=== PATIENT | male | born 1960 | race Caucasian/White ===

== ENCOUNTER 2021-01-21 13:34 | Inpatient (IN) | payer OTHER ==
[~2021-01-21] VITALS: Ht 180.3 cm; Wt 130.0 kg
[2021-01-21] MEDS ORDERED: ADULT ASPIRIN R81 MG PO (14:27)
--- NOTE | 2021-01-21 20:09 | NUR ---
PT ARRIVE TO [facility] FLOOR AT 1940 VIA STRETCHER. HE WAS ABLE TO MOVE OVER TO BED SBA. RR IS EVEN AND NONLABORED. NG TUBE IS INPLACE AND PLACE ON LIWS BY PRIMARY RN JUAN. COMPLETED ADMISSION HX WITH PT. HE DENIES NEEDS AT THIS TIME. ORIENTED PT TO CALL LIGHT. PT UP TO USE RESTROOM AND BACK IN BED. CALL LIGHT IS CLOSE AND IV FLUIDS ARE INFUSING PER MD ORDER.
--- NOTE | 2021-01-21 20:10 | NUR ---
pt ARRIVES TO THE FLOOR VIA STRETCHER, SBA TO BED. NG TUBE IN PLACE WITH LARGE AMOUNT GASTRIC CONTENTS; HOOKED UP TO LIWS. PT REPORTS NO PAIN OR NAUSEA AT THIS TIME. LUNGS SOUNDS COARSE WITH EXP WHEEZE. PT REPORTS BEING A SMOKER. BOWEL TONES HYPOACTIVE. IVF INFUSING PER ORDER. CHARGE NURSE AMANDA IN ROOM DOING MED HX.
--- NOTE | 2021-01-21 21:30 | NUR ---
IN ROOM FOR MED ADMINISTRATION. PT HAD BEEN SLEEPING BUT AWAKES TO HIS NAME. PT REPORTS NO NAUSEA OR PAIN AT THIS TIME. CALL LIGHT WITHIN REACH. PT ENCOURAGED TO USE CALL LIGHT FOR RESTROOM; PT AGREES TO DO SO.
--- NOTE | 2021-01-21 23:45 | NUR ---
COMPLETED HX WITH PT. SHE TALKS ABOUT NEEDING TO SEE A PCP BUT IS HAVING TROUBLE D/T COVID. ADVISED PT SHE WILL NEED TO FOLLOW UP WITH HER PCP AFTER HOSPITALIZATION. ASSISTED PT TO RESTROOM AND BACK TO BED. SHE HAD 200MLS OF EMESIS, PT STATES NAUSEA IS WORSE WITH MOVEMENT AND POSSIBLY WORSE AFTER THE DILAUDID. PILLOW PROVIDED AND HEAT TURNED UP PER PT REQUEST. SHE DENIES FURTHER NEEDS AT THIS TIME. CALL LIGHT IS CLOSE.
--- NOTE | 2021-01-22 00:38 | NUR ---
ROUNDS: PT WAS AWAKE THIS NURSE ENTERS ROOM. PT DENIES PAIN OR NAUSEA AT THIS TIME. WALL SUCTION CANISTER HAS 800ML GASTRIC CONTENTS; NEW CANISTER INSTALLED. PT DENIES NEEDS AT THIS TIME, CALL LIGHT WITHIN REACH
--- NOTE | 2021-01-22 02:40 | NUR ---
IN ROOM FOR 0200 VITALS. PT WAS ASLEEP, WOKE TO TOUCH ON ARM. VSS. NG TUBE CONTINUES TO HAVE LARGE AMOUNTS OF DRAINAGE. NEW IV BAG HUNG. PT DENIES FURTHER NEEDS AT THIS TIME. CALL LIGHT WITHIN REACH.
--- NOTE | 2021-01-22 04:00 | NUR ---
CALLED TO ROOM BY SHANDRA BELTRAN PT'S NG TUBE IS UNCLAMPED AT HIS NOSE. PT HAD JUST HAD A LARGE COUGHING FIT AND TUBE APPEARS TO BE MORE OUT OF NOSE ACCORDING TO MARKED PLACEMENT LINE. NG TUBE ADVANCED SLIGHTLY AND RECLAMPED. HOOKED UP WALL SUCTION AND GASTRIC CONTENTS BEGIN MOVING WITHIN NG TUBE. PT BACK TO BED, REQUESTS PRN PAIN MEDS FOR 5/10 NASAL PAIN. WILL BRING PRN DILAUDID.
--- NOTE | 2021-01-22 04:32 | NUR ---
IN ROOM TO ADMINISTER PRN 0.5MG DILAUDID; PT REPORTS STOMACH PRESSURE AND BEGINS DRY HEAVING. NG TUBE CHECK; SUCTION APPEARS TO BE INTACT; GASTRIC CONTENTS IN TUBE. PT REPORTS INCREASING RELIEF. WILL CONTINUE TO MONITOR.
--- NOTE | 2021-01-22 07:30 | NUR ---
Shift report received from MARKUS Mitchell, pt resting safely in bed w/ call light in reach, eyes closed, RR even and unlabored.
--- NOTE | 2021-01-22 08:00 | NUR ---
patient sitting up in the bed, offered warm washcloth. offered shower patient said he would like one later. bathroom set up for shower.
--- NOTE | 2021-01-22 08:30 | NUR ---
PT SITTING UP IN BED W/ CALL LIGHT IN REACH AND NG TUBE CONNECTED TO LOW INTERMITENT WALL SUCTION. MORNING ASSESMENT COMPLETED, SCHEDULED MEDS GIVEN AND IV FLUIDS INFUSING PER PROVIDER ORDERS. PT C/O MILD ABD PAIN BUT DENIED THE NEED FOR PRN PAIN MEDS.
--- NOTE | 2021-01-22 10:30 | NUR ---
PT'S NG TUBE DISCONNECTED AND IV SL, PT SHOWERING INDEPENDENTLY.
--- NOTE | 2021-01-22 10:51 | NUR ---
PROVIDER IN ROOM TO EVALUATE PT. VORB TO CONTINUE NPO STATUS, IV FLUIDS, AND TO CHANGE NG TUBE TO LOW CONTINUOUS WALL SUCTION.
--- NOTE | 2021-01-22 12:00 | NUR ---
PT RESTING IN BED SAFELY W/ CALL LIGHT IN REACH AND NG TUBE CONNECTED TO LOW CONTINOUS WALL SUCTION. PT DENIES ANY PAIN, NAUSEA, OR NEEDS AT THIS TIME.
--- NOTE | 2021-01-22 14:30 | NUR ---
Pt sitting up in bed watching tv, call light w/ in reach. NG tube to low continous wall suction. Pt denies any pain, nausea or needs at this time.
--- NOTE | 2021-01-22 16:15 | NUR ---
Pt sitting up in bed w/ call light in reach. Pt denies any needs at this time.
--- NOTE | 2021-01-22 18:25 | NUR ---
Pt rested in bed throughout shift, IND in room, showered, NG tube connected to low continous wall suction, NPO, and IV fluids infusing per provider order. Quantity sufficient urine output.
--- NOTE | 2021-01-22 19:30 | NUR ---
SHIFT REPORT FROM NURSE RICHARD. THIS NURSE IN ROOM TO CHECK ON PT; PT IS AGITATED. STATES THAT "NOBODY HAS BEEN IN HERE ALL DAY". PT IS WORRIED ABOUT HIS BLOOD SUGAR BECAUSE OF HIS NPO STATUS. PT IS UPSET THAT HE HASNT HAD IVF "ALL DAY". THIS RN CHECKED ORDERS AND PT SHOULD BE ON IVF SO THESE ARE REINSTATED, THIS RN WENT OVER DR NESBITT MOST RECENT PROGRESS NOTE AND REASSURED PT OF POC. PT WAS GRATEFUL, CALMED DOWN. CALL LIGHT WITHIN REACH.
--- NOTE | 2021-01-22 20:30 | NUR ---
CALL IN TO DR NESBITT FOR CEPACOL ORDER AND PRN CBG ORDERS. SEE EMAR.
--- NOTE | 2021-01-22 22:05 | NUR ---
IN ROOM TO ADMINISTER MED AND DO ASSESSMENT. CEPACOL LOZENGE PROVIDED TO PT. BOWEL TONES ACTIVE, PT REPORTS FLATUS. IVF INFUSING PER ORDER. NG TUBE CANISTER MARKED; DARK GREEN GASTRIC CONTENTS IN CANISTER. PT DENIES PAIN AT THIS TIME; JUST THROAT IRRIATION FROM NG TUBE. CMS INTACT, LUNG SOUNDS COARSE, WHEEZING. PT DENIES NEEDS AT THIS TIME. CALL LIGHT WITHIN REACH.
--- NOTE | 2021-01-23 00:57 | NUR ---
ROUNDS: PT AWAKE AND ATTEMPTING TO SIT UP; STATES NO NEEDS AT THIS TIME, JUST WANTS TO SIT UP FOR AWHILE. CALL LIGHT WITHIN REACH.
--- NOTE | 2021-01-23 02:44 | NUR ---
CALL LIGHT ANSERED. PT REPORTS SHARP PAIN IN RLQ. PT REQUESTS PRN PAIN MEDS. 0.5MG DILAUDID IV ADMINISTERED AT THIS TIME. NEW IVF HUNG. BOWEL TONES LESS ACTIVE THAN BEGINNING OF SHIFT BUT STILL ACTIVE. CALL LIGHT WITHIN REACH.
--- NOTE | 2021-01-23 05:40 | NUR ---
IN FOR I&OS. PT HAD 125ML GASTRIC FLUIDS OUT THE NG THIS SHIFT. PT C/O NASAL CONGESTION; TRYING TO CLEAR WITH KLEENEX. PT REPORTS PAIN HAS IMPROVED IN LLQ. PT SITTING UP IN CHAIR, WORRIED ABOUT HIS JOB. CALL LIGHT WITHIN REACH. NO FURTHER CARE NEEDS AT THIS TIME.
--- NOTE | 2021-01-23 07:47 | NUR ---
SHIFT REPORT RECEIVED FROM MARKUS NOLAND, PT RESTING IN BED SAFELY W/ CALL LIGHT IN REACH, PT DENIES ANY NEEDS AT THIS TIME.
--- NOTE | 2021-01-23 08:15 | NUR ---
PT WAS UP IN THE RECLINER. THIS PURCHASE PRICE ANALYST GAVE PT A WARM WASHCLOTH FOR THEIR FACE. PT REPORTED A THROBBING SENSATION IN THEIR RIGHT EYE. MARKUS RICHARD WAS NOTIFIED. CALL LIGHT IS WITHIN REACH. NO FURTHER NEEDS AT THIS TIME.
--- NOTE | 2021-01-23 09:00 | NUR ---
PT TAKEN VIA W/C FOR 2VIEW ABD XRAY.
--- NOTE | 2021-01-23 10:00 | NUR ---
PT RETURNED FROM XRAY, NG TUBE CLAMPED PER PROVIDER, MORNING ASSESMENT COMPLETE AND SCHEDULED MEDS GIVEN. PT DENIES NAUSEA OR PAIN. IV FLUIDS INFUSING PER PROVIDER ORDER. PT RESTING IN BED SAFELY W/ CALL LIGHT IN REACH
--- NOTE | 2021-01-23 10:01 | NUR ---
ADMINSTERED FLU VACCINE, LEFT ARM. NO PRIOR REACTIONS.
--- NOTE | 2021-01-23 10:45 | NUR ---
Spoke with Daniel. 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 He lives alone. He does not use any DME. State s he works a lot. He is a and goes to the [employer]. He also has [employer] insurance Grp # [phone]. This was emailed to Erika in admitting. He does not have pcp and is willing to take any one who will accept him. [facility] He currently has an ng tube inplace. Plans on dc to home when cleared by Uncertain of when this may be.
--- NOTE | 2021-01-23 12:15 | NUR ---
PT TAKEN VIA W/C FOR ABD IMAGING.
--- NOTE | 2021-01-23 14:30 | NUR ---
Pt has returned from Imaging, sitting up in bed w/ call light in reach, IV fluids infusing and NG tube clamped per provider orders. Pt denies any nausea, pain, or needs at this time.
--- NOTE | 2021-01-23 14:35 | NUR ---
Spoke with Gretel from [facility] and then faxed face sheet, ER note, and progress notes to [facility] to obtain pcp for this pt to establish care.
--- NOTE | 2021-01-23 14:43 | NUR ---
PATIENT IN BED WATCHING TV. VITALS AND I&O'S CHARTED. CALL LIGHT IN REACH. NO FURTHER NEEDS AT THIS TIME.
--- NOTE | 2021-01-23 15:15 | NUR ---
Received call from Gretel requesting date pt will dc and updated I am not sure as progress notes do not state. She plans to schedule pt with Juli[facility] Jan 31 but is awaiting to make sure he will be discharged by that time. I will contact her when clear date for dc.
--- NOTE | 2021-01-23 16:02 | NUR ---
Pt sitting up in bed watching tv, call light in reach. Pt denies any pain or nausea, states he just wants to eat some food
--- NOTE | 2021-01-23 17:03 | NUR ---
Results of abd imaging back, provider called and notified of results, provider states he will be in soon to see the pt, pt updated.
--- NOTE | 2021-01-23 18:04 | NUR ---
PATIENT IND. IN ROOM AND HAS BEEN AMBULATING AROUND ROOM. PATIENT NOW IN BED WATCHING TV. VITALS AND I&O'S CHARTED. CALL LIGHT IN REACH. NO FURTHER NEEDS AT THIS TIME.
--- NOTE | 2021-01-23 18:27 | NUR ---
Pt has remained NPO. A repeat abd x-ray and small bowel study completed, results showing SBO has resolved, provider aware of the results. Pt has denied any nausea or pain, and has had several BMs. Pt's IV became disloged and was removed. Pt IND in room, w/ quantity sufficient urine output.
--- NOTE | 2021-01-23 19:06 | NUR ---
NG tube removed per provider, tip intact, pt tolerated well. Pt given jello, pudding, and ice water.
--- NOTE | 2021-01-23 19:15 | NUR ---
SHIFT REPORT FROM NURSE RICHARD. PT IS UP IN [facility] AMBULATING. WOULD LIKE TO TRY TO EAT SOME SOUP. PT RETURNED TO ROOM. CALL SALOMON VAZQUEZ
--- NOTE | 2021-01-23 20:00 | NUR ---
PT AMBULATING IN HALLS; REPORTS FEELING "PRETTY GOOD".
--- NOTE | 2021-01-23 20:33 | NUR ---
SOUP GIVEN TO PT.
--- NOTE | 2021-01-23 21:00 | NUR ---
IN ROOM FOR ASSESSMENT AND VITALS. PT IS IN GOOD MOOD, FEELING WELL AND TOLERATING ORAL INTAKE WELL. PT REQUESTS MORE JUICE AND SOME SOUP. BOWEL TONES ACTIVE. PT REPORTS ANOTHER SOFT BM ALTHOUGH PT HAD ALREADY FLUSHED. SPOKE WITH DR NESBITT; NO NEED FOR IV UNLESS PT SHOULD NEED IV MEDS AGAIN. PT DENIES FURTHER NEEDS AT THIS TIME. CALL LIGHT WITHIN REACH
--- NOTE | 2021-01-24 00:30 | NUR ---
ROUNDS: PT APPEARS TO BE SLEEPING; LAYING LEFT LATERAL. RR NOTED. CALL LIGHT WITHIN REACH
--- NOTE | 2021-01-24 03:10 | NUR ---
ROUNDS: PT RESTING WITH EYES CLOSED IN BED, APPEARS TO BE SLEEPING. EVEN RR NOTED. PT LAYING RT LATERAL. NO APPARENT SIGNS OF DISTRESS.
--- NOTE | 2021-01-24 07:18 | NUR ---
Progress not faxed to Gretel at [facility] to schedule pcp appt.
--- NOTE | 2021-01-24 07:31 | NUR ---
Shift report received from MARKUS Mitchell, pt sitting up in bed w/ call light in reach, pt denies any pain, nausea, or needs at this time. Pt eager to discharge home.
--- NOTE | 2021-01-24 08:15 | NUR ---
PT AWAKE AND INDEPENDENT IN THE ROOM. BATHROOM IS SET UP FOR A SHOWER. CALL LIGHT WITHIN REACH. WHITE BOARD UPDATED. PT PLANS TO SHOWER AFTER BREAKFAST. CALL LIGHT WITHIN REACH. NO FURTHER NEEDS AT THIS TIME.
--- NOTE | 2021-01-24 10:15 | NUR ---
PT DRESSED AND READY TO GO HOME. DISCHARGE INSRTUCTIONS GIVEN BOTH VERBALLY AND WRITTEN, ALL QUESTIONS ANSWERED. VSS ON RA, AND IV REMOVED CATH INTACT, NO REDNESS OR SWELLING NOTED PT EDUCATED ON POST IV CARE. PT AMBULATORY TO THE FRONT LOBBY ESCORTED BY SHANDRA EDGE.
== END 2021-01-24 10:15 | disposition home or self-care (01) | DRG 389 ==
LOC: ED 13:34 → MS 18:52
PROVIDERS: ADMIT Surgery; ATTEND Surgery
DX: K56.609 Unspecified intestinal obstruction, unspecified as to partial versus complete obstruction (principal); K42.0 Umbilical hernia with obstruction, without gangrene; Z20.822 Contact with and (suspected) exposure to COVID-19; I10 Essential (primary) hypertension; E66.01 Morbid (severe) obesity due to excess calories; Z86.73 Personal history of transient ischemic attack (TIA), and cerebral infarction without residual deficits; Z91.038 Other insect allergy status; Z68.39 Body mass index [BMI] 39.0-39.9, adult
CPT/HCPCS: 74019; 74177; 74250; 80048; 80053; 81001; 83690; 85025; 85610; 90686; C9803; J1170; J2405; J7042; Q9967; U0003